=== PATIENT | female | born 1955 | race Caucasian/White ===

== ENCOUNTER 2016-07-21 19:20 | Emergency (ER) | payer OTHER ==
[~2016-07-21] VITALS: Ht 160 cm; Wt 70.0 kg
[~2016-07-21 19:20] MED LIST: CIPR500T87 PO; CLON0.25 PO; CLON1TAB23 PO; DEXT10TA22 PO; DIAZ10TA PO; DIVA500T4 PO; DOXE100C PO; FAMO20TA7 PO; LAMO100T PO; LAMO25TA6 PO; LAMO2TB. PO; LEVO100T PO; LEVO500T33 PO; LEVO75TA PO; LITH150C PO; LITH300T30 PO; MAGN400T26 PO; METR500T PO; MIRT15TA4 PO; OLAN15TA9 PO; OLAN5TAB3 PO; OMEP-110 PO; ONDA-39 PO; OXYB5TAB7 PO; OXYC1TAB7 PO; PROM25TA10 PO; QUET200T PO; QUET200T4 PO; QUET300T PO; SERT25TA3 PO; TRAZ100T15 PO; VANC1VIA3 PO; ZIPR40CA3 PO; ZOLP10TA5 PO
[2016-07-21] MEDS ORDERED: QUET25TA5 PO (19:34)
[2016-07-21] MEDS ORDERED: LITH150C PO (19:34)
[2016-07-21 20:33] LABS: ASPARTATE AMINO TRANSFERASE 6 U/L (15-37); BLOOD UREA NITROGEN 10 mg/dL (7-18)
[2016-07-21 21:00] VITALS: BP 138/69
[2016-07-21] MEDS ORDERED: LORazepam 0.5MG TABLET ONE (22:29)
[2016-07-21] MEDS ORDERED: LORazepam 0.5MG TABLET PO ONE (22:30)
== END 2016-07-21 23:37 | disposition home or self-care (01) ==
LOC: ED 22:48
DX: F31.9 Bipolar disorder, unspecified (principal); K20.9 Esophagitis, unspecified
CPT/HCPCS: 36415; 80053; 80307; 85025; 99284

== ENCOUNTER 2017-01-23 18:21 | Emergency (ER) | payer OTHER ==
[~2017-01-23] VITALS: Ht 160 cm; Wt 68.0 kg
[~2017-01-23 18:21] MED LIST changes: -LEVO500T33 PO; +LEVO500T47 PO; -ONDA-39 PO; +ONDA4TAB12 PO; +QUET25TA5 PO
[2017-01-23] MEDS ORDERED: CLON0.5T20 PO (18:40)
[2017-01-23 19:31] LABS: BLOOD UREA NITROGEN 9 mg/dL (7-18)
[2017-01-23 19:35] LABS: ASPARTATE AMINO TRANSFERASE 8 U/L (15-37)
[2017-01-23 19:41] LABS: HEMATOCRIT 40.6 % (34.6-47.8); HEMOGLOBIN 13.4 g/dL (11.7-16.4); WHITE BLOOD COUNT 5.4 x10^3/uL (3.4-10)
[2017-01-23 20:55] VITALS: BP 169/88
== END 2017-01-23 21:13 | disposition home or self-care (01) ==
LOC: ED 20:55
DX: F31.9 Bipolar disorder, unspecified (principal); Z72.89 Other problems related to lifestyle; Z90.49 Acquired absence of other specified parts of digestive tract; Z90.710 Acquired absence of both cervix and uterus
CPT/HCPCS: 36415; 80053; 85025; 99284

== ENCOUNTER 2017-01-24 17:57 | Observation (INO) | payer OTHER ==
[~2017-01-24] VITALS: Ht 160 cm; Wt 68.0 kg
[~2017-01-24 17:57] MED LIST changes: +CLON0.5T20 PO
[2017-01-24 19:35] LABS: BASOPHILS # (AUTO) 0.01 x10^3/uL (0-0.1); BASOPHILS % (AUTO) 0 % (0-1); EOSINOPHILS # (AUTO) 0.01 x10^3/uL (0-0.4); EOSINOPHILS % (AUTO) 0 % (1-7); LYMPHOCYTES % (AUTO) 27 % (22-44); MD NO; MEAN CORPUSCULAR HEMOGLOBIN 30.4 pg (27.0-34.8); MEAN CORPUSCULAR HGB CONC 33.2 g/dL (32.4-35.8); MEAN CORPUSCULAR VOLUME 91.8 fL (80-100); MEAN PLATELET VOLUME 7.8 fL (7.4-10.4); MONOCYTES # (AUTO) 0.47 x10^3/uL (0.2-0.8); MONOCYTES % (AUTO) 9 % (2-9); NEUTROPHILS # (AUTO) 3.52 x10^3/uL (1.8-6.8); NEUTROPHILS % (AUTO) 64 % (42-75); PLATELET COUNT 297 x10^3/uL (130-400); RED BLOOD COUNT 4.37 x10^6/uL (3.82-5.3); RED CELL DISTRIBUTION WIDTH 14.6 % (9.6-15.2)
[2017-01-24 19:45] LABS: ALBUMIN 3.9 g/dL (3.4-5.0); ANION GAP 8 mmol/L (5-15); CALCIUM 8.8 mg/dL (8.5-10.1); CHLORIDE 110 mmol/L (98-107)
[2017-01-24 19:49] LABS: SALICYLATE LEVEL < 1.7 mg/dL (2.8-20.0)
[2017-01-24 19:54] LABS: ACETAMINOPHEN < 2 mcg/mL (10-30); ALANINE AMINOTRANSFERASE 13 U/L (12-78); ALKALINE PHOSPHATASE 106 U/L (45-117); BILIRUBIN,TOTAL 1.2 mg/dL (0.2-1.0); CREATININE 0.72 mg/dL (0.55-1.02); FREE T4 (FREE THYROXINE) 1.06 ng/dL (0.76-1.46); THYROID STIMULATING HORMONE 0.735 mIU/L (0.358-3.740); TOTAL PROTEIN 6.7 g/dL (6.4-8.2)
[2017-01-24 22:08] LABS: AMPHETAMINE SCREEN, URINE Negative (Negative); BARBITURATE SCREEN, URINE Negative (Negative); BENZODIAZEPINE SCREEN, URINE Negative (Negative); CANNABINOID SCREEN, URINE Negative (Negative); COCAINE SCREEN, URINE Negative (Negative); METHADONE SCREEN, URINE Negative (Negative); OPIATE SCREEN, URINE Negative (Negative)
[2017-01-24] MEDS ORDERED: DOCUSATE 100 MG CAPSULE PO PRN (23:30)
[2017-01-25] MEDS ORDERED: LORazepam 1MG TABLET ONE (02:47)
[2017-01-25] MEDS: LORazepam 1MG TABLET PO PRN ×2 (03:10→15:10)
[2017-01-25] MEDS: QUETIAPINE 25MG TABLET PO PRN (03:11)
[2017-01-25 12:21] VITALS: BP 119/79
[2017-01-25 12:35] VITALS: BP 119/79
[2017-01-25 20:00] VITALS: BP 124/85
[2017-01-25] MEDS: ZIPRASIDONE 20 MG INJ IM PRN (22:02)
[2017-01-26 07:30] VITALS: BP 133/85
[2017-01-26] MEDS: QUETIAPINE 25MG TABLET PO PRN (09:18)
[2017-01-26] MEDS: LORazepam 1MG TABLET PO PRN ×2 (10:58→17:47)
[2017-01-26] MEDS: ZIPRASIDONE 20 MG INJ IM PRN (19:35)
[2017-01-26 20:00] VITALS: BP 132/82
[2017-01-27 07:22] VITALS: BP 118/80
[2017-01-27] MEDS: QUETIAPINE 25MG TABLET PO PRN ×3 (08:26→21:00)
[2017-01-27] MEDS ORDERED: ZIPRASIDONE 20MG CAPSULE ONE (13:33)
[2017-01-27] MEDS: ZIPRASIDONE 20MG CAPSULE PO PRN (13:35)
[2017-01-27 19:22] VITALS: BP 149/99
[2017-01-27] MEDS: LORazepam 1MG TABLET PO PRN (21:00)
[2017-01-28 08:55] VITALS: BP 132/84
[2017-01-28] MEDS: ZIPRASIDONE 20MG CAPSULE PO PRN (09:21)
[2017-01-28] MEDS: LORazepam 1MG TABLET PO PRN (17:50)
[2017-01-28 19:44] VITALS: BP 116/64
[2017-01-29 07:00] VITALS: BP 139/79
[2017-01-29] MEDS: LORazepam 1MG TABLET PO PRN ×2 (10:23→20:08)
[2017-01-29] MEDS: ZIPRASIDONE 20MG CAPSULE PO PRN ×2 (10:23→20:08)
[2017-01-29] MEDS: ZIPRASIDONE 20 MG INJ IM PRN (11:00)
[2017-01-29 19:13] VITALS: BP 145/84
[2017-01-30 08:27] VITALS: BP 120/83
[2017-01-30] MEDS: QUETIAPINE 25MG TABLET PO SCH (08:50)
[2017-01-30] MEDS: LITHIUM CARBONATE 150 MG CAPSULE PO SCH (09:57)
[2017-01-30 19:26] VITALS: BP 123/87
[2017-01-30] MEDS: LORazepam 1MG TABLET PO PRN (20:03)
[2017-01-31] MEDS: LORazepam 1MG TABLET PO PRN ×2 (03:07→13:12)
[2017-01-31] MEDS: LEVOTHYROXINE 75 MCG TABLET PO SCH (06:00)
[2017-01-31 08:59] VITALS: BP 118/78
[2017-01-31] MEDS: QUETIAPINE 25MG TABLET PO SCH (09:01)
[2017-01-31] MEDS: LITHIUM CARBONATE 150 MG CAPSULE PO SCH (09:01)
[2017-01-31] MEDS: ZIPRASIDONE 20MG CAPSULE PO PRN (11:21)
[2017-01-31 19:24] VITALS: BP 114/68
[2017-01-31] MEDS: ZIPRASIDONE 20 MG INJ IM PRN (19:57)
[2017-01-31] MEDS ORDERED: QUETIAPINE 25MG TABLET PO SCH (21:00)
[2017-02-01] MEDS: LORazepam 1MG TABLET PO PRN (02:49)
[2017-02-01] MEDS: LEVOTHYROXINE 75 MCG TABLET PO SCH (06:32)
[2017-02-01 08:06] VITALS: BP 119/77
[2017-02-01] MEDS: LITHIUM CARBONATE 150 MG CAPSULE PO SCH (08:15)
[2017-02-01 19:23] VITALS: BP 112/69
[2017-02-01] MEDS ORDERED: QUETIAPINE 200 MG TABLET ONE (19:55)
[2017-02-01] MEDS ORDERED: QUETIAPINE 200 MG TABLET PO SCH (21:00)
[2017-02-02] MEDS: LEVOTHYROXINE 75 MCG TABLET PO SCH (05:00)
[2017-02-02 07:30] VITALS: BP 131/87
[2017-02-02] MEDS: LITHIUM CARBONATE 150 MG CAPSULE PO SCH (08:31)
[2017-02-02 19:19] VITALS: BP 118/77
[2017-02-02] MEDS: QUETIAPINE 100MG TABLET PO SCH (20:06)
[2017-02-03] MEDS: LEVOTHYROXINE 75 MCG TABLET PO SCH (06:03)
[2017-02-03] MEDS: LITHIUM CARBONATE 150 MG CAPSULE PO SCH (09:18)
[2017-02-03 09:20] VITALS: BP 121/76
[2017-02-03 19:48] VITALS: BP 135/89
[2017-02-03] MEDS: QUETIAPINE 100MG TABLET PO SCH (20:23)
[2017-02-04] MEDS: LEVOTHYROXINE 75 MCG TABLET PO SCH (06:21)
[2017-02-04 08:22] LABS: CULTURE INDICATED? YES; MICROSCOPIC INDICATED
[2017-02-04] MEDS: LITHIUM CARBONATE 150 MG CAPSULE PO SCH (08:27)
[2017-02-04 08:37] VITALS: BP 121/71
[2017-02-04] MEDS: CEFDINIR 300 MG CAPSULE PO SCH ×2 (09:05→20:00)
[2017-02-04 19:21] VITALS: BP 144/88
[2017-02-04] MEDS: QUETIAPINE 100MG TABLET PO SCH (20:01)
[2017-02-05] MEDS: LEVOTHYROXINE 75 MCG TABLET PO SCH (06:20)
[2017-02-05 08:00] VITALS: BP 118/74
[2017-02-05] MEDS: CEFDINIR 300 MG CAPSULE PO SCH ×2 (08:44→20:13)
[2017-02-05] MEDS: LITHIUM CARBONATE 150 MG CAPSULE PO SCH (08:44)
[2017-02-05 19:37] VITALS: BP 94/57
[2017-02-05] MEDS: QUETIAPINE 100MG TABLET PO SCH (20:13)
[2017-02-06] MEDS: LEVOTHYROXINE 75 MCG TABLET PO SCH (05:34)
[2017-02-06 08:15] VITALS: BP 136/87
[2017-02-06] MEDS: CEFDINIR 300 MG CAPSULE PO SCH (08:26)
[2017-02-06] MEDS: LITHIUM CARBONATE 150 MG CAPSULE PO SCH (08:26)
== END 2017-02-06 11:23 ==
LOC: ED 20:36 → INTOOBSV 21:00 → EDIP 21:00 → 2N 01-25 11:59
PROVIDERS: ADMIT Surgery; ATTEND Surgery
DX: F23 Brief psychotic disorder (principal); N39.0 Urinary tract infection, site not specified; R45.851 Suicidal ideations; E03.9 Hypothyroidism, unspecified; G40.909 Epilepsy, unspecified, not intractable, without status epilepticus; F31.9 Bipolar disorder, unspecified; F43.10 Post-traumatic stress disorder, unspecified; F90.9 Attention-deficit hyperactivity disorder, unspecified type; R17 Unspecified jaundice; Z87.442 Personal history of urinary calculi; Z59.0 Homelessness; Z79.899 Other long term (current) drug therapy; Z90.710 Acquired absence of both cervix and uterus
CPT/HCPCS: 36415; 80053; 80178; 80307; 80329; 81001; 82140; 84439; 84443; 85025; 87077; 87086; 87186; 96372; 99285; G0378; J3486; G0479; G0480

== ENCOUNTER 2017-03-10 15:28 | Emergency (ER) | payer OTHER ==
[~2017-03-10] VITALS: Ht 160 cm; Wt 68.0 kg
[2017-03-10] MEDS ORDERED: FLUO20CA8 PO (16:27)
[2017-03-10] MEDS ORDERED: GLUC1KIT PO (16:27)
[2017-03-10] MEDS ORDERED: CHOL10002 PO (16:27)
[2017-03-10] MEDS ORDERED: LORA2TAB PO (16:27)
[2017-03-10] MEDS ORDERED: ACET650S21 PO (16:27)
[2017-03-10] MEDS ORDERED: HYDR50CA2 PO (16:27)
[2017-03-10] MEDS ORDERED: ASPI-515 PO (16:27)
[2017-03-10] MEDS ORDERED: LORA2VIA IM (16:27)
[2017-03-10] MEDS ORDERED: BENZ2AMP4 IM (16:27)
[2017-03-10] MEDS ORDERED: TRAZ50TA18 PO (16:27)
[2017-03-10] MEDS ORDERED: EPIN0.3P3 SQ (16:27)
[2017-03-10] MEDS ORDERED: TRAZ100T15 PO (16:27)
[2017-03-10] MEDS ORDERED: LITH300T3 PO (16:27)
[2017-03-10] MEDS ORDERED: HALO5VIA2 IM (16:27)
[2017-03-10] MEDS ORDERED: HALO5TAB5 PO (16:27)
[2017-03-10] MEDS ORDERED: NYST5000 PO (16:27)
[2017-03-10] MEDS ORDERED: RISP2TAB3 PO (16:27)
[2017-03-10] MEDS ORDERED: NALO0.4V14 IM (16:27)
[2017-03-10 20:29] VITALS: BP 120/74
== END 2017-03-10 21:00 | disposition home or self-care (01) ==
LOC: ED 17:00
DX: S00.93XA Contusion of unspecified part of head, initial encounter (principal); S80.01XA Contusion of right knee, initial encounter; Z90.49 Acquired absence of other specified parts of digestive tract; Z90.710 Acquired absence of both cervix and uterus; W01.0XXA Fall on same level from slipping, tripping and stumbling without subsequent striking against object, initial encounter; Y93.89 Activity, other specified; Y92.89 Other specified places as the place of occurrence of the external cause; Y99.9 Unspecified external cause status
CPT/HCPCS: 70450; 70486; 99284

== ENCOUNTER 2017-03-12 12:46 | Emergency (ER) | payer OTHER ==
[~2017-03-12] VITALS: Ht 160 cm; Wt 68.0 kg
[~2017-03-12 12:46] MED LIST changes: +ACET650S21 PO; +ASPI-515 PO; +BENZ2AMP4 IM; +CHOL10002 PO; +EPIN0.3P3 SQ; +FLUO20CA8 PO; +GLUC1KIT PO; +HALO5TAB5 PO; +HALO5VIA2 IM; +HYDR50CA2 PO; +LITH300T3 PO; +LORA2TAB PO; +LORA2VIA IM; +NALO0.4V14 IM; +NYST5000 PO; +RISP2TAB3 PO; +TRAZ50TA18 PO
[2017-03-12 13:51] LABS: BASOPHILS # (AUTO) 0.02 x10^3/uL (0-0.1); BASOPHILS % (AUTO) 0 % (0-1); EOSINOPHILS % (AUTO) 0 % (1-7); LYMPHOCYTES # (AUTO) 1.05 x10^3/uL (1-3.4); LYMPHOCYTES % (AUTO) 17 % (22-44); MD NO; MEAN CORPUSCULAR HEMOGLOBIN 30.6 pg (27.0-34.8); MEAN CORPUSCULAR HGB CONC 33.7 g/dL (32.4-35.8); MEAN CORPUSCULAR VOLUME 90.8 fL (80-100); MEAN PLATELET VOLUME 8.6 fL (7.4-10.4); MONOCYTES # (AUTO) 0.64 x10^3/uL (0.2-0.8); MONOCYTES % (AUTO) 10 % (2-9); NEUTROPHILS # (AUTO) 4.58 x10^3/uL (1.8-6.8); NEUTROPHILS % (AUTO) 73 % (42-75); PLATELET COUNT 297 x10^3/uL (130-400); RED BLOOD COUNT 4.21 x10^6/uL (3.82-5.3); RED CELL DISTRIBUTION WIDTH 14.1 % (9.6-15.2)
[2017-03-12 14:00] LABS: ALBUMIN 3.5 g/dL (3.4-5.0); ANION GAP 5 mmol/L (5-15); CALCIUM 9.4 mg/dL (8.5-10.1); CHLORIDE 106 mmol/L (98-107); CREATININE 0.73 mg/dL (0.55-1.02)
[2017-03-12] MEDS ORDERED: OMNIPAQUE 350 MG/ML, 150 ML BOTTLE ONE (17:20)
[2017-03-12 19:42] VITALS: BP 144/80
== END 2017-03-12 20:05 ==
LOC: ED 14:10
DX: R13.13 Dysphagia, pharyngeal phase (principal); Z90.49 Acquired absence of other specified parts of digestive tract; F31.9 Bipolar disorder, unspecified; F43.10 Post-traumatic stress disorder, unspecified
CPT/HCPCS: 36415; 74220; 80048; 82040; 85025; 99285; Q9967

== ENCOUNTER → 2017-06-19 | Outpatient (CLI) | payer OTHER | END | disposition home or self-care (01) | LOC: RAD 09:17 | PROVIDERS: ATTEND Nurse Practitioner | DX: R13.10 Dysphagia, unspecified (principal) | CPT/HCPCS: 74230 ==

== ENCOUNTER 2018-03-12 09:44 | Outpatient (CLI) | payer MEDICARE ==
[~2018-03-12 09:44] MED LIST changes: +TRAZ-137 PO; -TRAZ100T15 PO; -TRAZ50TA18 PO; +TRAZ50TA66 PO
== END 2018-03-12 23:59 | disposition home or self-care (01) ==
LOC: RAD 09:44
PROVIDERS: ATTEND Psychiatry & Neurology Psychiatry
DX: R13.10 Dysphagia, unspecified (principal)
CPT/HCPCS: 74230

== ENCOUNTER 2019-11-15 18:47 | Emergency (ER) | payer MEDICARE ==
[~2019-11-15] VITALS: Ht 160 cm; Wt 65.0 kg
[~2019-11-15 18:47] MED LIST changes: +FLUO20CA23 PO; -FLUO20CA8 PO; -LAMO100T PO; +LAMO100T8 PO; +MIRT-34 PO; -MIRT15TA4 PO; +ONDA-89 PO; -ONDA4TAB12 PO; +OXYB5TAB10 PO; -OXYB5TAB7 PO; -TRAZ-137 PO; +TRAZ-175 PO
--- NOTE | 2019-11-15 19:10 | NUR ---
assumed care of pt. report from Ting CADENA. pt SIVA MUNOZ from nursing home c/o sternal CP. pt is slightly developmentally delayed, but states that "it hurts a lot". pt resting calmly on gurney. no resp distress. VALENTINE. no family at bedside
--- NOTE | 2019-11-15 19:25 | NUR ---
pt ambulated to BR. well tolerated. pt has made repeated requests for something to eat and for Sprite. pt reminded of NPO status at this time. pt positioning for comfort
--- NOTE | 2019-11-15 19:50 | NUR ---
pt given PO snack and sprite per request per OK from Samira ESCOBAR
--- NOTE | 2019-11-15 20:03 | NUR ---
pt has returned from RAD
[2019-11-15 20:06] LABS: BASOPHILS % (AUTO) 0 % (0-1); EOSINOPHILS % (AUTO) 0 % (1-7); LYMPHOCYTES % (AUTO) 23 % (22-44); MEAN CORPUSCULAR HEMOGLOBIN 30.3 pg (27.0-34.8); MEAN CORPUSCULAR HGB CONC 33.1 g/dL (32.4-35.8); MEAN PLATELET VOLUME 8.5 fL (7.4-10.4); MONOCYTES % (AUTO) 11 % (2-9); NEUTROPHILS % (AUTO) 65 % (42-75); PLATELET COUNT 263 x10^3/uL (130-400); RED BLOOD COUNT 4.63 x10^6/uL (3.82-5.3); RED CELL DISTRIBUTION WIDTH 13.9 % (9.6-15.2)
[2019-11-15 20:09] LABS: MD NO
[2019-11-15 20:16] LABS: ALANINE AMINOTRANSFERASE 13 U/L (12-78); ALBUMIN 3.4 g/dL (3.4-5.0); ANION GAP 4 mmol/L (5-15); CHLORIDE 108 mmol/L (98-107); CREATININE 0.93 mg/dL (0.55-1.02)
[2019-11-15 20:20] LABS: ALKALINE PHOSPHATASE 86 U/L (45-117); BILIRUBIN,TOTAL 0.4 mg/dL (0.2-1.0); TOTAL PROTEIN 6.2 g/dL (6.4-8.2); TROPONIN I < 0.015 ng/mL (0.000-0.045)
--- NOTE | 2019-11-15 20:30 | NUR ---
no hanges. pt sitting up on [employer] and watching TV in no apparent distress. pt has made mulitple inquiries regarding when she can go home. pt updated on POC
--- NOTE | 2019-11-15 20:58 | NUR ---
pt still making repeated inquiries regarding when and how she will be going home. pt updated on POC. chart up for recheck
--- NOTE | 2019-11-15 21:26 | NUR ---
pt ready to be D/C. spoke to Austin at [facility] whree pt is a resident. per [facility], there is no transport services on weekends. pt to be given cab voucher to return to [facility]. pt updated on POC. pt given sandwich and PO fluids
[2019-11-15 21:46] VITALS: BP 137/76
--- NOTE | 2019-11-15 22:01 | NUR ---
F/U with Austin at [facility] at [phone] to verify that pt arrived safely at the facility.
== END 2019-11-15 21:50 | disposition home or self-care (01) ==
LOC: ED 19:55
DX: R07.89 Other chest pain (principal); Z90.710 Acquired absence of both cervix and uterus; Z90.49 Acquired absence of other specified parts of digestive tract; Z90.89 Acquired absence of other organs
CPT/HCPCS: 36415; 71046; 80053; 84484; 85025; 93005; 99285

== ENCOUNTER 2020-02-12 18:45 | Emergency (ER) | payer MEDICARE ==
[~2020-02-12] VITALS: Ht 160 cm; Wt 61.1 kg
[~2020-02-12 18:45] MED LIST changes: +CEFD300C37 PO; -RISP2TAB3 PO; +RISP2TAB80 PO
--- NOTE | 2020-02-12 19:17 | NUR ---
REPORT GIVEN TO TRACY CADENA.
--- NOTE | 2020-02-12 19:20 | NUR ---
REPORT RECIEVED FROM DARBY CADENA
[2020-02-12] MEDS ORDERED: IBUPROFEN 200 MG TABLET ONE (19:21)
[2020-02-12] MEDS ORDERED: IBUPROFEN 200 MG TABLET PO ONE (19:30)
--- NOTE | 2020-02-12 19:41 | NUR ---
pt requesting new diaper. bedding changed and pt independent with hygiene care
--- NOTE | 2020-02-12 20:05 | NUR ---
PT PROVIDED SANDWICH AND SPRITE PER REQUEST BY THIS RN. AWAITING D/C.
[2020-02-12 20:33] VITALS: BP 124/70
== END 2020-02-12 20:35 | disposition home or self-care (01) ==
LOC: ED 19:58
DX: G89.29 Other chronic pain (principal); R51.9 Headache, unspecified; Z90.89 Acquired absence of other organs; Z90.49 Acquired absence of other specified parts of digestive tract; Z90.710 Acquired absence of both cervix and uterus; Y04.8XXA Assault by other bodily force, initial encounter; Y93.89 Activity, other specified; Y92.89 Other specified places as the place of occurrence of the external cause; Y99.8 Other external cause status
CPT/HCPCS: 99283

== ENCOUNTER 2020-04-14 06:54 | Observation (INO) | payer MEDICARE ==
[~2020-04-14] VITALS: Ht 160 cm; Wt 62.3 kg
[~2020-04-14 06:54] MED LIST changes: -ASPI-515 PO; +ASPI-963 PO; +SERT-331 PO; -SERT25TA3 PO
--- NOTE | 2020-04-14 07:08 | NUR ---
PT BIB EMS FOR CP AND N/V. PT STATES THE PAIN IS A 10/10 AND FEELS LIKE AN ELEPHANT SITTING ON HER CHEST. PT ALSO ASKING FOR SPRITE OR JUICE AND STATING SHE IS HUNGRY. PT WOKE UP THIS AM WITH NAUSEA AND BEGAN VOMITTING. THE CHEST PAIN STARTED AFTER THE VOMITING. PT STATES SHE HAS NEVER FELT PAIN LIKE THIS BEFORE.
[2020-04-14 07:28] LABS: BASOPHILS % (AUTO) 0 % (0-1); EOSINOPHILS % (AUTO) 0 % (1-7); LYMPHOCYTES % (AUTO) 19 % (22-44); MEAN CORPUSCULAR HEMOGLOBIN 30.8 pg (27.0-34.8); MEAN PLATELET VOLUME 8.3 fL (7.4-10.4); MONOCYTES % (AUTO) 11 % (2-9); NEUTROPHILS % (AUTO) 70 % (42-75); PLATELET COUNT 320 x10^3/uL (130-400); RED BLOOD COUNT 4.41 x10^6/uL (3.82-5.3); RED CELL DISTRIBUTION WIDTH 14.2 % (9.6-15.2)
[2020-04-14 07:30] LABS: MD NO
[2020-04-14] MEDS ORDERED: NITROGLYCERIN SINGLE TAB 0.4 MG SL ONE (07:30)
[2020-04-14] MEDS ORDERED: ASPIRIN 81 MG TABLET CHEW PO ONE (07:30)
[2020-04-14] MEDS ORDERED: ASPIRIN 81 MG TABLET CHEW ONE (07:30)
[2020-04-14] MEDS ORDERED: NITROGLYCERIN SINGLE TAB 0.4 MG SL PRN (07:30)
[2020-04-14] MEDS ORDERED: SODIUM CHLORIDE FLUSH 10ML SYR IVF ONE (07:30)
[2020-04-14 07:42] LABS: ALANINE AMINOTRANSFERASE 15 U/L (12-78); ALBUMIN 3.4 g/dL (3.4-5.0); ANION GAP 5 mmol/L (5-15); CALCIUM 9.7 mg/dL (8.5-10.1); CHLORIDE 113 mmol/L (98-107); CREATININE 0.84 mg/dL (0.55-1.02)
[2020-04-14 07:46] LABS: ALKALINE PHOSPHATASE 89 U/L (45-117); BILIRUBIN,TOTAL 0.4 mg/dL (0.2-1.0); TOTAL PROTEIN 6.1 g/dL (6.4-8.2); TROPONIN I < 0.015 ng/mL (0.000-0.045)
[2020-04-14] MEDS ORDERED: ENOXAPARIN 40 MG/0.4 ML ONE (09:17)
[2020-04-14] MEDS ORDERED: RISPERIDONE 2 MG TABLET ONE (09:17)
[2020-04-14] MEDS: RISPERIDONE 2 MG TABLET PO SCH ×2 (09:20→19:39)
[2020-04-14] MEDS: ENOXAPARIN 40 MG/0.4 ML SQ SCH (09:21)
[2020-04-14] MEDS ORDERED: ACETAMINOPHEN 325 MG TABLET PO PRN (09:30)
[2020-04-14] MEDS ORDERED: hydrALAzine 20 MG/ML, 1ML IVPush PRN (09:30)
[2020-04-14] MEDS ORDERED: SODIUM CHLORIDE FLUSH 10ML SYR IVF PRN (09:30)
[2020-04-14] MEDS ORDERED: ONDANSETRON ODT 4 MG PO PRN (09:30)
[2020-04-14] MEDS ORDERED: ONDANSETRON 2MG/ML, 2ML IVPush PRN (09:30)
[2020-04-14] MEDS ORDERED: NITROGLYCERIN 0.4 MG BOTTLE (25 TABS) SL PRN (09:30)
[2020-04-14] MEDS ORDERED: BACLOFEN 10 MG TABLET PO PRN (09:30)
[2020-04-14] MEDS ORDERED: ENALAPRILAT 1.25 MG/ML, 2ML IVPush PRN (09:30)
[2020-04-14] MEDS ORDERED: BUTALB/APAP/CAFFEINE 50MG/325MG/40MG PO PRN (09:30)
[2020-04-14 09:41] LABS: TROPONIN I < 0.015 ng/mL (0.000-0.045)
--- NOTE | 2020-04-14 10:07 | NUR ---
PHONE REPORT TO SURINDER FRAGOSO
[2020-04-14 10:38] VITALS: BP 115/81
[2020-04-14] MEDS ORDERED: TRAZ150T62 PO (13:19)
[2020-04-14] MEDS ORDERED: BUPR300T49 PO (13:19)
[2020-04-14] MEDS ORDERED: DONE10TA14 PO (13:22)
[2020-04-14] MEDS ORDERED: DIPH25CA61 PO (13:22)
[2020-04-14] MEDS ORDERED: OXYB-39 PO (13:22)
[2020-04-14] MEDS ORDERED: LEVO75TA5 PO (13:22)
[2020-04-14 14:50] VITALS: BP 135/83
[2020-04-14 15:30] LABS: TROPONIN I < 0.015 ng/mL (0.000-0.045)
[2020-04-14] MEDS ORDERED: DIPHENHYDRAMINE 25 MG CAPSULE PO PRN (19:30)
[2020-04-14 19:33] VITALS: BP 117/80
[2020-04-14] MEDS: HALOPERIDOL 5 MG TABLET PO PRN (19:38)
[2020-04-14] MEDS: LITHIUM CARBONATE 300 MG CAPSULE PO SCH (20:51)
[2020-04-14] MEDS ORDERED: MELATONIN 5 MG TABLET PO SCH (21:00)
[2020-04-15 00:05] VITALS: BP 126/78
[2020-04-15] MEDS: HALOPERIDOL 5 MG TABLET PO PRN (00:30)
[2020-04-15] MEDS ORDERED: ASPIRIN 325 MG TABLET EC PO SCH (06:00)
[2020-04-15 07:52] VITALS: BP 113/67
[2020-04-15] MEDS ORDERED: LEVOTHYROXINE 75 MCG TABLET PO SCH (09:00)
[2020-04-15] MEDS ORDERED: SENNA/DOCUSATE TABLET PO SCH (09:00)
[2020-04-15] MEDS: RISPERIDONE 2 MG TABLET PO SCH (09:07)
[2020-04-15] MEDS: LITHIUM CARBONATE 300 MG CAPSULE PO SCH (09:07)
[2020-04-15] MEDS: ENOXAPARIN 40 MG/0.4 ML SQ SCH (09:08)
[2020-04-15] MEDS ORDERED: REGADENOSON 0.4 MG/5 ML SYRINGE ONE (10:07)
[2020-04-15 12:45] VITALS: BP 98/62
== END 2020-04-15 16:56 | disposition home or self-care (01) ==
LOC: ED 09:31 → INTOOBSV 10:12 → EDIP 10:12 → 5SO 10:26
PROVIDERS: ADMIT Family Medicine; ATTEND Family Medicine
DX: R07.89 Other chest pain (principal); F31.9 Bipolar disorder, unspecified; E03.9 Hypothyroidism, unspecified; N32.81 Overactive bladder; F90.2 Attention-deficit hyperactivity disorder, combined type; Z87.891 Personal history of nicotine dependence; Z59.0 Homelessness; Z90.710 Acquired absence of both cervix and uterus; Z87.442 Personal history of urinary calculi; Z79.899 Other long term (current) drug therapy
CPT/HCPCS: 36415; 71045; 78452; 80053; 84484; 85025; 85379; 93005; 93017; 96372; 99285; A9502; G0378; J1650; J2785; Q0163

== ENCOUNTER 2020-05-12 22:19 | Emergency (ER) | payer MEDICARE ==
[~2020-05-12] VITALS: Ht 160 cm; Wt 63.9 kg
[~2020-05-12 22:19] MED LIST changes: +BUPR300T49 PO; +DIPH25CA61 PO; +DONE10TA14 PO; +LEVO75TA5 PO; +OXYB-39 PO; +TRAZ150T62 PO
--- NOTE | 2020-05-12 22:48 | NUR ---
erp saw pt, pt changing into gown at this time
[2020-05-12] MEDS ORDERED: SODIUM CHLORIDE FLUSH 10ML SYR IVF ONE (23:00)
[2020-05-12 23:10] LABS: BASOPHILS % (AUTO) 0 % (0-1); EOSINOPHILS % (AUTO) 0 % (1-7); LYMPHOCYTES % (AUTO) 16 % (22-44); MEAN CORPUSCULAR HEMOGLOBIN 30.8 pg (27.0-34.8); MEAN CORPUSCULAR HGB CONC 33.3 g/dL (32.4-35.8); MEAN PLATELET VOLUME 8.2 fL (7.4-10.4); MONOCYTES % (AUTO) 10 % (2-9); NEUTROPHILS % (AUTO) 74 % (42-75); PLATELET COUNT 282 x10^3/uL (130-400); RED BLOOD COUNT 4.51 x10^6/uL (3.82-5.3); RED CELL DISTRIBUTION WIDTH 14.1 % (9.6-15.2)
[2020-05-12 23:11] LABS: MD NO
[2020-05-12 23:23] LABS: ALANINE AMINOTRANSFERASE 15 U/L (12-78); ALBUMIN 3.8 g/dL (3.4-5.0); ANION GAP 4 mmol/L (5-15); CALCIUM 9.5 mg/dL (8.5-10.1); CHLORIDE 109 mmol/L (98-107)
[2020-05-12 23:25] LABS: ALKALINE PHOSPHATASE 91 U/L (45-117); BILIRUBIN,TOTAL 0.4 mg/dL (0.2-1.0); TOTAL PROTEIN 6.8 g/dL (6.4-8.2)
--- NOTE | 2020-05-12 23:36 | NUR ---
PT TO CT. URINE COLLECTED
[2020-05-12] MEDS ORDERED: OMNIPAQUE 350 MG/ML, 100ML BOTTLE ONE (23:50)
[2020-05-12 23:59] LABS: MICROSCOPIC AUTO
[2020-05-13] MEDS ORDERED: ACETAMINOPHEN 325 MG TABLET ONE (00:36)
[2020-05-13 00:38] VITALS: BP 124/54
[2020-05-13] MEDS ORDERED: ACETAMINOPHEN 325 MG TABLET PO ONE (01:00)
--- NOTE | 2020-05-13 01:30 | NUR ---
[facility] AND [facility] WERE PHONED AND THIS RN WAS TOLD THAT THEY DO NOT HAVE PT ESTABLISHED THERE AND THAT PT IS NOT ALLOWED BACK AT [facility] FOR ALTERCATION. PT HOMELESS AND SENT TO SNF ON AND PT STATED SHE IS OK WITH THAT.
== END 2020-05-13 01:52 | disposition home or self-care (01) ==
LOC: ED 22:41
DX: N30.00 Acute cystitis without hematuria (principal); R93.5 Abnormal findings on diagnostic imaging of other abdominal regions, including retroperitoneum; Z90.49 Acquired absence of other specified parts of digestive tract; Z90.710 Acquired absence of both cervix and uterus; Z90.89 Acquired absence of other organs
CPT/HCPCS: 36415; 74177; 80053; 81001; 85025; 87077; 87086; 87186; 99285; Q9967

== ENCOUNTER 2020-05-13 05:22 | Emergency (ER) | payer MEDICARE ==
[~2020-05-13] VITALS: Ht 160 cm; Wt 62.0 kg
[2020-05-13] MEDS ORDERED: ACETAMINOPHEN 500 MG TABLET ONE (05:54)
[2020-05-13] MEDS ORDERED: FOSFOMYCIN 3 GM PACKET ONE (05:54)
[2020-05-13] MEDS ORDERED: ACETAMINOPHEN 500 MG TABLET PO ONE (06:00)
[2020-05-13] MEDS ORDERED: FOSFOMYCIN 3 GM PACKET PO ONE (06:00)
--- NOTE | 2020-05-13 06:09 | NUR ---
Patient given discharge instructions and they have confirmed that they understand the instructions. Patient ambulatory with steady gait. provided bus pass and all questions answered appropriately.
[2020-05-13 06:10] VITALS: BP 110/70
== END 2020-05-13 06:11 | disposition home or self-care (01) ==
LOC: ED 06:10
DX: N30.00 Acute cystitis without hematuria (principal); R10.9 Unspecified abdominal pain; Z72.9 Problem related to lifestyle, unspecified; Z90.89 Acquired absence of other organs; Z90.49 Acquired absence of other specified parts of digestive tract; Z90.710 Acquired absence of both cervix and uterus
CPT/HCPCS: 99283

== ENCOUNTER 2020-05-19 16:16 | Emergency (ER) | payer MEDICARE ==
[~2020-05-19] VITALS: Ht 160 cm; Wt 61.8 kg
--- NOTE | 2020-05-19 17:23 | NUR ---
PT TO ROOM 16 FROM LOBBY
--- NOTE | 2020-05-19 17:29 | NUR ---
cc of RLQ pain 10/10 since this am, + nausea and diarrhea, denies vomiting. pt states she came from [facility]. upon entering room pt making multiple request for blanket, a drink, tylenol, asking if she'll be admitted, and if the ED will give her an all day bus pass.
[2020-05-19] MEDS ORDERED: SODIUM CHLORIDE 0.9% 1,000ML IVBOLUS ONE (17:30)
[2020-05-19] MEDS ORDERED: SODIUM CHLORIDE FLUSH 10ML SYR IVF ONE (17:30)
[2020-05-19 18:00] LABS: BASOPHILS % (AUTO) 1 % (0-1); EOSINOPHILS % (AUTO) 0 % (1-7); LYMPHOCYTES % (AUTO) 24 % (22-44); MEAN CORPUSCULAR HEMOGLOBIN 30.9 pg (27.0-34.8); MEAN CORPUSCULAR HGB CONC 33.5 g/dL (32.4-35.8); MEAN PLATELET VOLUME 8.2 fL (7.4-10.4); MONOCYTES % (AUTO) 11 % (2-9); NEUTROPHILS % (AUTO) 65 % (42-75); PLATELET COUNT 320 x10^3/uL (130-400)
[2020-05-19 18:05] LABS: MD NO
[2020-05-19 18:07] LABS: CHLORIDE 111 mmol/L (98-107)
[2020-05-19 18:17] LABS: ALANINE AMINOTRANSFERASE 13 U/L (12-78); ALBUMIN 3.5 g/dL (3.4-5.0); ALKALINE PHOSPHATASE 81 U/L (45-117); ANION GAP 3 mmol/L (5-15); BILIRUBIN,TOTAL 0.2 mg/dL (0.2-1.0); CALCIUM 8.9 mg/dL (8.5-10.1); CREATININE 0.79 mg/dL (0.55-1.02); TOTAL PROTEIN 6.1 g/dL (6.4-8.2)
--- NOTE | 2020-05-19 18:21 | NUR ---
PT RESTING ON GURNEY, PT A&O, RESPS EVEN AND UNLABORED. NO VOMITING SINCE ARRIVAL. PT C/O 11/14 RIGHT LOWER ABD PAIN, HOWEVER KEEPS ASKING FOR KETTY MIST DRINK. BP AND SPO2 MONITORS IN PLACE. PT INSTRUCTED TO PROVIDE CLEAN CATCH UA, SUPPLIES AT BEDSIDE. PT AWAITING CT AND DISPO.
--- NOTE | 2020-05-19 18:35 | NUR ---
PT TO CT.
[2020-05-19] MEDS ORDERED: OMNIPAQUE 350 MG/ML, 100ML BOTTLE ONE (18:45)
--- NOTE | 2020-05-19 18:49 | NUR ---
PT BACK FROM CT.
--- NOTE | 2020-05-19 18:59 | NUR ---
REPORT FROM MITESH CADENA
--- NOTE | 2020-05-19 19:04 | NUR ---
REPORT GIVEN TO SURINDER MOLINA AT BEDSIDE. PT A&O, RESPS EVEN AND UNLABORED, ANGELESN. AWAITING CT READ AND DISPO.
[2020-05-19 19:45] LABS: MICROSCOPIC AUTO
[2020-05-19 22:00] VITALS: BP 158/84
--- NOTE | 2020-05-19 22:02 | NUR ---
throughput rn: pt states she has a room at [facility]. called [facility] triage center and was told pt goes to the clinic but has never been admitted with a room at any facility.
--- NOTE | 2020-05-19 22:08 | NUR ---
throughput rn: told that ems dropped off pt with the address: [id number]. instructed pt to be returned there after discharge
--- NOTE | 2020-05-19 22:22 | NUR ---
LATE ENTRY. PT GIVEN TAXI VOUCHER TO ADDRESS PROVIDED FROM EMS. EMS NOTES STATES THIS IS WHERE PT LIVES AND TO BE DC'D BACK TO ADDRESS WHEN READY. PT VERBALIZES UNDERSTANDING OF PLAN AND LEFT WITH ALL PERSONAL BELONGINGS
== END 2020-05-19 22:14 | disposition home or self-care (01) ==
LOC: ED 19:27
DX: Q61.3 Polycystic kidney, unspecified (principal); Z86.39 Personal history of other endocrine, nutritional and metabolic disease
CPT/HCPCS: 36415; 74177; 80053; 81001; 83690; 85025; 87086; 96360; 96361; 99285; J7030; Q9967

== ENCOUNTER 2020-05-25 11:51 | Emergency (ER) | payer MEDICARE ==
[~2020-05-25] VITALS: Ht 160 cm; Wt 73.0 kg
--- NOTE | 2020-05-25 12:00 | NUR ---
PT AMBULATORY TO & FROM [facility] W/OUT INCIDENT; GAIT STEADY. SMALL AMOUNT VOIDED SPECIMEN PROVIDED. PT C/O RLQ PAIN X 1 DAY. LAST ORAL INTAKE: THIS MORNING. LAST BM: YESTERDAY. PT FREQUENTLY ASKING FOR SPRITE; INFORMED HER THAT SHE MUST WAIT FOR PROVIDER EXAM FIRST. LMP: N/A (MENOPAUSE). NO MED TAKEN FOR PAIN.
--- NOTE | 2020-05-25 13:11 | NUR ---
REPORT FROM EDIN CADENA.
--- NOTE | 2020-05-25 13:24 | NUR ---
PT OFF UNIT FOR IMAGING.
--- NOTE | 2020-05-25 13:39 | NUR ---
[facility] URINE SAMPLE COLLECTED WITHOUT DIFFICULTY.
[2020-05-25 13:49] LABS: BASOPHILS % (AUTO) 0 % (0-1); EOSINOPHILS % (AUTO) 0 % (1-7); LYMPHOCYTES % (AUTO) 26 % (22-44); MEAN CORPUSCULAR HEMOGLOBIN 30.7 pg (27.0-34.8); MEAN CORPUSCULAR HGB CONC 33.1 g/dL (32.4-35.8); MEAN PLATELET VOLUME 8.1 fL (7.4-10.4); MONOCYTES % (AUTO) 11 % (2-9); NEUTROPHILS % (AUTO) 63 % (42-75); PLATELET COUNT 288 x10^3/uL (130-400); RED BLOOD COUNT 4.44 x10^6/uL (3.82-5.3); RED CELL DISTRIBUTION WIDTH 14.1 % (9.6-15.2)
[2020-05-25 13:52] LABS: MD NO
[2020-05-25 13:59] LABS: ALANINE AMINOTRANSFERASE 12 U/L (12-78); ALBUMIN 3.7 g/dL (3.4-5.0); ANION GAP 3 mmol/L (5-15); CALCIUM 9.1 mg/dL (8.5-10.1); CHLORIDE 110 mmol/L (98-107); CREATININE 0.81 mg/dL (0.55-1.02)
[2020-05-25 14:01] LABS: ALKALINE PHOSPHATASE 85 U/L (45-117); BILIRUBIN,TOTAL 0.3 mg/dL (0.2-1.0); TOTAL PROTEIN 6.8 g/dL (6.4-8.2)
[2020-05-25 14:01] LABS: MICROSCOPIC NOT IND
--- NOTE | 2020-05-25 14:19 | NUR ---
PT RESTING IN NAD. VSS.
[2020-05-25] MEDS ORDERED: MAGNESIUM CITRATE 300ML ORAL SOL PO ONE (15:00)
[2020-05-25] MEDS ORDERED: PINK LADY ENEMA 490 ML BOTTLE PR ONE (15:00)
--- NOTE | 2020-05-25 15:03 | NUR ---
SECOND REQUEST TO PHARMACY FOR ENEMA.
[2020-05-25] MEDS ORDERED: MAGNESIUM CITRATE 300ML ORAL SOL ONE (15:05)
--- NOTE | 2020-05-25 15:45 | NUR ---
CALL TO PHARMACY, THIRD REQUEST FOR [facility] ENEMA.
--- NOTE | 2020-05-25 15:45 | NUR ---
ASSISTED PT TO BEDSIDE COMMODE.
--- NOTE | 2020-05-25 16:19 | NUR ---
PT TO BEDSIDE COMMODE FOR BM.
[2020-05-25 16:30] VITALS: BP 129/72
--- NOTE | 2020-05-25 16:31 | NUR ---
PER PT'S REQUEST TO CALL [facility] AT [phone], PER PRETTY THEY WILL NOT BE ABLE TO PICK HER UP. WILL PROVIDE TAXI VOUCHER FOR SAFE DISCHARGE.
== END 2020-05-25 16:40 | disposition home or self-care (01) ==
LOC: ED 16:30
DX: K59.00 Constipation, unspecified (principal); R10.84 Generalized abdominal pain; R10.31 Right lower quadrant pain; Z86.39 Personal history of other endocrine, nutritional and metabolic disease; Z90.89 Acquired absence of other organs; Z90.49 Acquired absence of other specified parts of digestive tract; Z90.710 Acquired absence of both cervix and uterus; Z87.891 Personal history of nicotine dependence
CPT/HCPCS: 36415; 74018; 80053; 81003; 85025; 99285

== ENCOUNTER 2020-05-30 20:04 | Emergency (ER) | payer MEDICARE ==
[~2020-05-30] VITALS: Ht 160 cm; Wt 68.6 kg
[2020-05-30 20:57] LABS: BASOPHILS % (AUTO) 1 % (0-1); EOSINOPHILS % (AUTO) 0 % (1-7); LYMPHOCYTES % (AUTO) 24 % (22-44); MEAN CORPUSCULAR HEMOGLOBIN 30.6 pg (27.0-34.8); MEAN CORPUSCULAR HGB CONC 33.1 g/dL (32.4-35.8); MEAN PLATELET VOLUME 8.3 fL (7.4-10.4); MONOCYTES % (AUTO) 11 % (2-9); NEUTROPHILS % (AUTO) 64 % (42-75); PLATELET COUNT 301 x10^3/uL (130-400); RED BLOOD COUNT 4.46 x10^6/uL (3.82-5.3); RED CELL DISTRIBUTION WIDTH 14.3 % (9.6-15.2)
[2020-05-30 20:59] LABS: MD NO
[2020-05-30] MEDS ORDERED: ACETAMINOPHEN 325 MG TABLET PO ONE (21:00)
[2020-05-30 21:06] LABS: ALANINE AMINOTRANSFERASE 16 U/L (12-78); ALBUMIN 3.5 g/dL (3.4-5.0); ANION GAP 5 mmol/L (5-15); CALCIUM 8.9 mg/dL (8.5-10.1); CHLORIDE 109 mmol/L (98-107); CREATININE 0.82 mg/dL (0.55-1.02)
[2020-05-30 21:09] LABS: ALKALINE PHOSPHATASE 87 U/L (45-117); BILIRUBIN,TOTAL 0.3 mg/dL (0.2-1.0); TOTAL PROTEIN 6.4 g/dL (6.4-8.2)
[2020-05-30] MEDS ORDERED: ACETAMINOPHEN 325 MG TABLET ONE (21:22)
--- NOTE | 2020-05-30 21:28 | NUR ---
BIB [facility] PT REPORT LRQ PAIN IN ABD X 3WEEKS. LIVES AT [facility]. REPRTED 11/14 PAIN. PT STATES HAS BEEN DIAGNOSED WITH OVARIAN CYST. PT REQUESTING TYLENOL
[2020-05-30] MEDS ORDERED: OMNIPAQUE 350 MG/ML, 100ML BOTTLE ONE (21:30)
--- NOTE | 2020-05-30 21:30 | NUR ---
PT TO CT.
[2020-05-30 22:29] VITALS: BP 157/116
--- NOTE | 2020-05-30 22:50 | NUR ---
PRETTY FROM [facility] CALLED, HER ETA WILL BE [phone]. Patient given discharge instructions and they have confirmed that they understand the instructions. Patient ambulatory with steady gait. No question at time of discharge.
== END 2020-05-30 22:53 | disposition home or self-care (01) ==
LOC: ED 20:14
DX: K59.00 Constipation, unspecified (principal); R10.32 Left lower quadrant pain; G89.29 Other chronic pain; I10 Essential (primary) hypertension; Z87.891 Personal history of nicotine dependence; Z86.39 Personal history of other endocrine, nutritional and metabolic disease
CPT/HCPCS: 36415; 74177; 80053; 85025; 99285; Q9967

== ENCOUNTER 2020-06-12 16:20 | Emergency (ER) | payer MEDICARE ==
[~2020-06-12] VITALS: Ht 160 cm; Wt 69.0 kg
[~2020-06-12 16:20] MED LIST changes: -VANC1VIA3 PO; +VANC1VIA36 PO
[2020-06-12 16:24] VITALS: BP 121/79
--- NOTE | 2020-06-12 16:30 | NUR ---
BIB [facility] FROM [facility]. PT C/O LLQ PAIN. SOUS CHEF [facility]: IBUPROFEN 600MG, ZOFRAN 4MG, TYLENOL 500MG. PER [facility], PT SUNDOWNS AROUND THIS TIME OF NIGHT. PT AMBULATED TO ROOM FROM AMBULANCE WITH STEADY GAIT. PT CONNECTED TO MONITORING. CALL LIGHT IN REACH. [facility] [address] [facility]
[2020-06-12] MEDS ORDERED: MAGNESIUM CITRATE 300ML ORAL SOL ONE (16:44)
--- NOTE | 2020-06-12 16:49 | NUR ---
PT PROVIDED [facility] [employer] TO TAKE HOME FOR CONSITPATION RELIEF, PER [facility] INSTRUCTIONS.
--- NOTE | 2020-06-12 16:50 | NUR ---
PT PROVIDED TAXI VOUCHER BACK TO [facility].
[2020-06-12] MEDS ORDERED: MAGNESIUM CITRATE 300ML ORAL SOL PO ONE (17:00)
== END 2020-06-12 16:52 | disposition home or self-care (01) ==
LOC: ED 16:46
DX: R10.32 Left lower quadrant pain (principal); K59.00 Constipation, unspecified
CPT/HCPCS: 99283

== ENCOUNTER 2020-09-15 18:51 | Emergency (ER) | payer MEDICARE ==
[~2020-09-15] VITALS: Ht 160 cm; Wt 63.0 kg
[~2020-09-15 18:51] MED LIST changes: +MIRT-14 PO; -MIRT-34 PO; +OLAN15TA14 PO; -OLAN15TA9 PO
[2020-09-15 18:59] VITALS: BP 133/58
[2020-09-15 20:11] LABS: MICROSCOPIC AUTO
--- NOTE | 2020-09-15 21:16 | NUR ---
This RN talked to socail work from [place] on pt. Pt was DC'd earlier today and was sent via taxi to go to [facility]. Pt redirected taxi to take her to [facility]. alf director also contacted this RN to get this pt a safe dc back home so she can not redirect the tilt tray driver due to her dementia. DANEIL
--- NOTE | 2020-09-15 21:23 | NUR ---
Pt DC'd with [facility] for safe transport home.
== END 2020-09-15 21:36 | disposition home or self-care (01) ==
LOC: ED 21:00
DX: N39.0 Urinary tract infection, site not specified (principal); Z90.49 Acquired absence of other specified parts of digestive tract; Z90.710 Acquired absence of both cervix and uterus; Z90.89 Acquired absence of other organs
CPT/HCPCS: 81001; 87086; 99283